=== PATIENT | male | born 1935 | race Caucasian/White ===

== ENCOUNTER 2016-07-18 07:09 | Day surgery (SDC) | payer OTHER ==
[2016-07-07 20:23] LABS: BASOPHILS 0.2 %; BASOPHILS ABSOLUTE 0.01 10/3/uL (0.0-0.16); EOSINOPHILS 6.7 %; HEMATOCRIT 41.7 % (40.0-51.0); IMMATURE GRANULOCYTES 0.2 %; IMMATURE GRANULOCYTES ABSOLUTE 0.01 10/3/uL (0.0-0.11); LYMPHOCYTES 30.3 %; LYMPHOCYTES ABSOLUTE 1.35 10/3/uL (0.67-4.30); MEAN CORPUS HGB CONC 33.6 g/dL (32.0-36.0); MEAN CORPUSCULAR HEMOGLOB 33.2 pg (26.0-34.0); MONOCYTES 9.6 %; MONOCYTES ABSOLUTE 0.43 10/3/uL (0.21-1.20); NEUTROPHILS ABSOLUTE 2.36 10/3/uL (2.02-8.40); PLATELET COUNT 171 10/3/uL (150-400); RED CELL COUNT 4.22 10/6/uL (4.7-6.1); WHITE BLOOD CELLS 4.5 10/3/uL (4.5-10.5)
[2016-07-07 20:27] LABS: MANUAL DIFF NO %; MEAN CORPUSCULAR VOLUME 98.8 fL (80-100)
[2016-07-07 20:40] LABS: BUN (BLOOD UREA NITROGEN) 20 MG/DL (6-23); CALCIUM, SERUM 8.7 MG/DL (8.5-10.4); CHLORIDE, SERUM 106 MMOL/L (96-112); CO2 (CARBON DIOXIDE) 26 MMOL/L (24-34); CREATININE 1.15 MG/DL (0.70-1.30); GFR AFRICAN AMERICAN 70 ML/MIN (>=60); GFR NON AFRICAN AMERICAN 61 ML/MIN (>=60); GLUCOSE, SERUM 118 MG/DL (60-99); POTASSIUM, SERUM 4.1 MMOL/L (3.5-5.3); SODIUM, SERUM 142 MMOL/L (135-148)
[2016-07-07 22:03] LABS: INTERNATIONAL NORMAL RATI 1.1 UNITS (-); PARTIAL THROMBO TIME 38.4 SEC (22.5-37.2); PROTIME (NOT ORD) 13.8 SEC (12.0-14.5)
--- NOTE | ~2016-07-18 | OP ---
Record Of Operation [facility] [address] [place]. [address] NAME: MARIA M BO : 39 STATUS : [facility]#: [id number] AGE: 80 ADM/REG DATE : 07/18/16 MR#: [id number] REPORT SERV DATE: 07/19/16 DICTATED BY: AURORA ALAS DATE: 07/19/16 REPORT STATUS : Draft TRANSCRIBED BY: JT DATE: 07/19/16 DATE OF PROCEDURE: 07/18/2016 PREOPERATIVE DIAGNOSIS: Oropharyngeal pain, odynophagia, and [place] syndrome. POSTOPERATIVE DIAGNOSIS: Oropharyngeal pain, odynophagia, and [place] syndrome. PROCEDURE PERFORMED: 1. Microscopic direct laryngoscopy. 2. Transoral resection right styloid process. INDICATIONS AND SIGNIFICANT HISTORY: The patient is a 80-year-old male with significant history years of increasing pain with swallowing. He on exam demonstrated uvulopalatopharyngoplasty defect, but palpable in the lateral tonsillar fossa. It was a firm tender mass consistent with styloid process. Palpation of this area did reproduce the pain. The patient was felt to benefit from excision of this styloid process for treatment of [place] syndrome and was scheduled for such. OPERATIVE PROCEDURE AND FINDINGS: After informed consent was obtained, the patient was brought to the operating room, placed on the operating table in supine position, at which point general endotracheal anesthesia was induced by Anesthesia Service and direct laryngoscopy was performed. Microscope was wheeled in place along with Dedo laryngoscope inserted into the oral cavity and used to inspect the postpharyngeal wall, which again revealed an uvulopalatopharyngoplasty defect with surgically absent tonsils. Base of tongue, epiglottis, supraglottis, and glottic larynx were all normal. Attention was then turned toward the right tonsillar fossa, where a Jewell-Jose mouth gag was placed and the styloid process was easily palpated. A Bovie cautery was then used to make an incision in the mucosa just over this firm bony mass and blunt dissection was used to identify and expose the styloid process. The Martha dissector was then used to elevate muscles off this area and then a ring curette was used to clear off the remainder musculature off the surface of the right styloid process. Next, a bone rongeur was used to grasp the styloid process and divided freeing the bony portion. No substantial bleeding occurred in this area. The lateral pharyngeal wall was closed with a single stitch plain gut and the patient was turned back toward Anesthesia, aroused from anesthesia, and taken to the postanesthesia care unit in satisfactory condition. COMPLICATIONS: None. ESTIMATED BLOOD LOSS: Less than 5 mL. IV FLUIDS: Per anesthesia. ARIEL/JT Record Of [address] [place]. [address] NAME: MARIA M BO : 39 STATUS : [facility]#: [id number] AGE: 80 ADM/REG DATE : 07/18/16 MR#: [id number] REPORT SERV DATE: 07/19/16 DICTATED BY: AURORA ALAS DATE: 07/19/16 REPORT STATUS : Draft TRANSCRIBED BY: JT DATE: 07/19/16 Aurora Alas M.D. / [id number] CC: Prema Bravo M.D.
[~2016-07-18 07:09] MED LIST: ASAB PO; FLOMAX4 PO; GLUCCHONDR PO; JANUVIA100 MG PO; MEVACOR PO; NEXIUM20 M1 PO; NEXIUM40 PO; OSTEO BI-FLX PO; OSTEOBIFLEX; PRILOSEC40 MG PO; PRINZIDE1 TAB PO; ZESTORETIC1 TAB PO
== END 2016-07-18 12:15 | disposition home or self-care (01) ==
LOC: SDC 07:09
PROVIDERS: Otolaryngology
PROC: 0NB50ZZ Excision of Right Temporal Bone, Open Approach (ICD-10-PCS; 2016-07-18)
PROC: 0CJS8ZZ Inspection of Larynx, Via Natural or Artificial Opening Endoscopic (ICD-10-PCS; principal; 2016-07-18 08:45)
DX: Q79.4 Prune belly syndrome (principal); R13.10 Dysphagia, unspecified; E78.5 Hyperlipidemia, unspecified; I10 Essential (primary) hypertension; K21.9 Gastro-esophageal reflux disease without esophagitis; K58.9 Irritable bowel syndrome, unspecified; E11.9 Type 2 diabetes mellitus without complications; K22.70 Barrett's esophagus without dysplasia; M19.90 Unspecified osteoarthritis, unspecified site; K64.9 Unspecified hemorrhoids; Z85.46 Personal history of malignant neoplasm of prostate; Z92.3 Personal history of irradiation; Z98.890 Other specified postprocedural states; Z98.41 Cataract extraction status, right eye; Z98.42 Cataract extraction status, left eye; Z96.1 Presence of intraocular lens; Z90.89 Acquired absence of other organs; Z88.5 Allergy status to narcotic agent
CPT/HCPCS: 36415; 80048; 82962; 85025; 85610; 85730; 88305; 88307; 88311; 93005; A9270-GY; J0690; J2250; J2405; J2710; J3010